=== PATIENT | male | born 1975 | race African-American/Black ===

== ENCOUNTER 2018-11-30 08:58 | Emergency (ER) | payer SELFPAY ==
[2018-10-17 15:43] VITALS: BP 100/65
[~2018-11-30] VITALS: Ht 185.4 cm; Wt 72.6 kg
[2018-11-30] MEDS ORDERED: GABA-585 PO (09:40)
--- NOTE | 2018-11-30 10:19 | PHYS DOC ---
Past Medical History Past Medical History: No Pertinent History Past Surgical History: No Surgical History Alcohol Use: None Drug Use: None Adult General Chief Complaint Chief Complaint: HAND PROBLEM HPI HPI Patient is a 43 year old [male who presents with numbness bilateral hands. When asked about his medical history he said he had no history. Of note he has had a recent very complicated admission he left early he has complicated social situation he has a 9 year-old he is an only apparent single parent. Apparently he was admitted he had pancytopenia it was recommended for him to have multiple testing done and included a bone marrow biopsy he left due to having to take care of his child he felt better but then now he has had 2 weeks of this bilateral hand numbness he wears gloves to protect his hands no weakness and no bowel or bladder incontinence no neck pain no headache no speech problem no chest pain denies shortness of breath denies abdominal pain denies vomiting or diarrhea no rash. No leg symptoms at all. Denies drugs or alcohol Review of Systems Review of Systems Constitutional: Denies fever or chills [] Eyes: Denies change in visual acuity, redness, or eye pain [] HENT: Denies nasal congestion or sore throat [] Respiratory: Denies cough or shortness of breath [] Cardiovascular: No additional information not addressed in HPI [] GI: Denies abdominal pain, nausea, vomiting, bloody stools or diarrhea [] Neurologic: Denies headache, focal weakness Endocrine: Denies polyuria or polydipsia [] All other systems were reviewed and found to be within normal limits, except as documented in this note. Allergies Allergies Allergies Coded Allergies Type Severity Reaction Last Updated Verified No Known Drug Allergies 10/16/18 No Physical Exam Physical Exam Constitutional: Well developed, well nourished, no acute distress, non-toxic appearance. [] HENT: Normocephalic, atraumatic, bilateral external ears normal, oropharynx moist, no oral exudates, nose normal. [] Eyes: PERRLA, EOMI, conjunctiva normal, no discharge. [] Neck: Normal range of motion, no tenderness, supple, no stridor. [] Cardiovascular:Heart rate regular rhythm, no murmur [] Lungs & Thorax: Bilateral breath sounds clear to auscultation [] Abdomen: Bowel sounds normal, soft, no tenderness, no masses, no pulsatile masses. [] Skin: Warm, dry, no erythema, no rash. [] Back: No tenderness, no CVA tenderness. [] Extremities: No tenderness, no cyanosis, no clubbing, ROM intact, no edema. [] Neurologic: Alert and oriented X 3, normal motor function, decreased sensation to light touch. Interosseous strength is intact radial strength is intact radial pulses are intact distal strength is intact in his legs, no focal deficits noted. [] Psychologic: Affect normal, judgement normal, mood normal. [] Current Patient Data Vital Signs Vital Signs Date Time Temp Pulse Resp B/P (MAP) Pulse Ox O2 Delivery O2 Flow Rate FiO2 11/30/18 09:12 98.1 87 16 118/69 (85) 99 Room Air 98.1 EKG EKG [] Radiology/Procedures Radiology/Procedures [] Course & Med Decision Making Course & Med Decision Making Pertinent Labs and Imaging studies reviewed. (See chart for details) This is a 43-year-old male was presenting to the emergency room with numbness b/ l hands. hx of pancytopenia., severe but he hasn't completed workup yet. The differential diagnosis was incredibly broad including a blood clot abnormality as well as vitamin deficiency central [employer] pathology is possible I strongly recommended the patient be admitted to the hospital and have lab work and further testing in the emergency room and I told him that I could not really get to the bottom of what is going on without an admission. 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 Again I offered lab work and admission here in the emergency room but he is unable to complete this because he has to mixing picker tender his child from school quite soon there is no way we can get all done before that. He plans to have his sister from [place] coming to town in the next couple of days he hopes so that he can come back and be admitted for a prolonged evaluation. He has good strength at this time I did instruct him if he has any bowel or bladder incontinence or any weakness at all he is to come back to the emergency room right away. He did sign out AGAINST MEDICAL ADVICE he understands that there is a risk of potential decline he has no other choice at this time I offered him talk with the social sciences department chair but he declined that at this time as well. He does plan to come back I believe he has his best interest at heart and is trying to get his son taking care of prior to coming back in. Dragon Disclaimer Dragon Disclaimer This electronic medical record was generated, in whole or in part, using a voice recognition dictation system. Departure Departure Impression: Primary Impression: Numbness and tingling Disposition: 07 AGAINST MEDICAL ADVICE Condition: STABLE Additional Instructions: you have very abnormal blood counts, we need you to come back as soon as you can have your nine year old taken care of so we can do more tests. call 911 or come back right away should you have any incontinence or weakness of arm or leg. Scripts Gabapentin (GABAPENTIN ) 100 Mg Capsule 100 MG PO TID for NEUROGENIC PAIN, #30 CAP Prov: HOLDEN STUART MD 11/30/18 HOLDEN STUART MD Nov 30, 2018 10:19
== END 2018-11-30 09:43 | disposition left against medical advice (07) ==
LOC: ER 08:58
DX: R20.0 Anesthesia of skin (principal); R20.2 Paresthesia of skin
CPT/HCPCS: 99283

== ENCOUNTER 2019-04-28 04:09 | Emergency (ER) | payer OTHER ==
[2018-11-30 09:12] VITALS: BP 118/69
[~2019-04-28] VITALS: Ht 182.9 cm; Wt 81.6 kg
[~2019-04-28 04:09] MED LIST: GABA-585 PO
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
== END 2019-04-28 05:16 | disposition home or self-care (01) ==
LOC: ER 04:09
DX: M54.2 Cervicalgia (principal); M25.561 Pain in right knee; V49.9XXA Car occupant (driver) (passenger) injured in unspecified traffic accident, initial encounter; Y93.89 Activity, other specified; Y92.410 Unspecified street and highway as the place of occurrence of the external cause; Y99.8 Other external cause status
CPT/HCPCS: 72040; 73562; 99284

== ENCOUNTER 2020-02-05 12:19 | Emergency (ER) | payer OTHER ==
[~2020-02-05] VITALS: Ht 182.9 cm; Wt 84.0 kg
[2020-02-05] MEDS ORDERED: IV NORMAL SALINE 1000ML BAG 1,000 ML IV ONE (13:00)
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
[2020-02-05 13:26] VITALS: BP 115/70
[2020-02-05 13:42] LABS: BASO % 0 % (0-3); EOS % 0 % (0-3); HEMATOCRIT 37.8 % (39.0-53.0); HEMOGLOBIN 12.8 g/dL (13.0-17.5); LYMPH # 1.3 x10^3/uL (1.0-4.8); LYMPH % 8 % (24-48); MEAN CORPUSCULAR HEMOGLOBIN 31 pg (25-35); MEAN CORPUSCULAR HGB CONC 34 g/dL (31-37); MEAN CORPUSCULAR VOLUME 92 fL (79-100); MONO # 1.4 x10^3/uL (0.0-1.1); MONO % 8 % (0-9); NEUT # 14.6 x10^3/uL (1.8-7.7); NEUT % 84 % (31-73); PLATELET COUNT 151 x10^3/uL (140-400); RED BLOOD COUNT 4.12 x10^6/uL (4.30-5.70); RED CELL DISTRIBUTION WIDTH 14.5 % (11.5-14.5); WHITE BLOOD COUNT 17.3 x10^3/uL (4.0-11.0)
--- NOTE | 2020-02-05 13:46 | RAD ---
AP chest x-ray HISTORY: Fatigue. FINDINGS: Heart size normal. Mediastinal silhouette is normal. No pneumothorax, pulmonary opacities or pleural effusions. Bones are unremarkable. IMPRESSION: No acute process. Electronically signed by: Saad Montano MD (02/05/2020 1:43 PM) [id number]
[2020-02-05 13:52] LABS: PROTHROMBIN TIME PATIENT 14.3 SEC (11.7-14.0)
[2020-02-05 13:57] LABS: CALCIUM 8.7 mg/dL (8.5-10.1); CREATININE 0.9 mg/dL (0.7-1.3); GFR 110.9; POTASSIUM 3.3 mmol/L (3.5-5.1)
[2020-02-05 14:03] LABS: ALBUMIN 3.2 g/dL (3.4-5.0); ALBUMIN/GLOBULIN RATIO 0.9 (1.0-1.7); MAGNESIUM 1.6 mg/dL (1.8-2.4); TOTAL BILIRUBIN 0.5 mg/dL (0.2-1.0); TOTAL PROTEIN 6.9 g/dL (6.4-8.2)
[2020-02-05 14:06] LABS: % BANDS 14 % (0-9); % LYMPHS 6 % (24-48); % MONOS 8 % (0-10); % SEGS 72 % (35-66)
[2020-02-05 14:08] LABS: PLT ESTIMATE ADEQUATE (ADEQUATE); TOXIC GRANULATION SLIGHT
[2020-02-05 16:03] LABS: BILIRUBIN,URINE NEGATIVE (NEG); CLARITY,URINE CLEAR; COLOR,URINE YELLOW; NITRITE,URINE POSITIVE (NEG); PH,URINE 5.5 (<5.0-8.0); PROTEIN,URINE 30 mg/dL (NEG-TRACE)
[2020-02-05 16:09] LABS: BACTERIA,URINE MANY /HPF (0-FEW); RBC,URINE OCC /HPF (0-2); SQUAMOUS EPITHELIAL CELL,UR OCC /LPF; WBC,URINE 20-40 /HPF (0-4)
[2020-02-05] MEDS ORDERED: CEPH500T PO (16:35)
--- NOTE | 2020-02-05 21:01 | EKG ---
[facility] [address] [place] [address] Test Date: 2020-02-05 Test Time: 13:14:37 Pat Name: VERONIKA CUETO Department: Room: Gender: M [employer] Operator: : 1975 Requested By: JULIO CESAR ARANGO Order Number: [id number] Reading MD: Measurements Intervals [place] Rate: 85 P: 46 MI: 126 QRS: 0 QRSD: 94 T: 39 QT: 356 QTc: 428 Interpretive Statements SINUS RHYTHM LEFT ATRIAL ABNORMALITY LEFTWARD AXIS ABNORMAL ECG No previous ECG available for comparison
== END 2020-02-05 16:51 | disposition home or self-care (01) ==
LOC: ER 12:19
DX: N30.01 Acute cystitis with hematuria (principal); R42 Dizziness and giddiness
CPT/HCPCS: 36415; 71045; 80053; 81001; 82607; 83605; 83735; 84484; 85007; 85025; 85610; 87086; 93005; 96360; 99285; J7030